=== PATIENT | female | born 1995 ===

== ENCOUNTER 2021-06-13 10:07 | Emergency (ER) | payer OTHER ==
[~2021-06-13] VITALS: Ht 160 cm; Wt 59.0 kg
[2021-06-13] MEDS ORDERED: PEPCID AC20 MG (10:23)
[2021-06-13] MEDS ORDERED: CIPRO500 MG PO (16:41)
[2021-06-13] MEDS ORDERED: PEPCID AC20 MG PO (16:41)
[2021-06-13] MEDS ORDERED: PROBIOTIC1 EAC2 PO (16:41)
== END 2021-06-13 17:09 | disposition home or self-care (01) ==
LOC: ER 10:07
DX: R19.7 Diarrhea, unspecified (principal); Z03.818 Encounter for observation for suspected exposure to other biological agents ruled out; R11.0 Nausea; R63.0 Anorexia

== ENCOUNTER 2021-08-22 14:21 | Emergency (ER) | payer OTHER ==
[~2021-08-22] VITALS: Ht 167.6 cm; Wt 64.0 kg
[~2021-08-22 14:21] MED LIST: CIPRO500 MG PO; PEPCID AC20 MG; PEPCID AC20 MG PO; PROBIOTIC1 EAC2 PO
== END 2021-08-22 22:04 | disposition home or self-care (01) ==
LOC: ER 14:21
DX: K29.60 Other gastritis without bleeding (principal); Z03.818 Encounter for observation for suspected exposure to other biological agents ruled out
CPT/HCPCS: 74177; Q9965